=== PATIENT | male | born 2005 | race Caucasian/White ===

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

== ENCOUNTER 2025-07-04 15:54 | Emergency (ER) | payer OTHER, SELFPAY ==
[2025-07-04] MEDS ORDERED: Acetaminophen 500 MG TAB ONE (16:38)
== END 2025-07-04 17:31 | disposition home or self-care (01) ==
LOC: BURERS 15:54
DX: S06.0X0A Concussion without loss of consciousness, initial encounter (principal); E10.9 Type 1 diabetes mellitus without complications; Z79.4 Long term (current) use of insulin; F17.290 Nicotine dependence, other tobacco product, uncomplicated; V49.40XA Driver injured in collision with unspecified motor vehicles in traffic accident, initial encounter
CPT/HCPCS: 70450; 71250; 72125